=== PATIENT | female | born 1965 | race Asian ===

== ENCOUNTER 2022-08-01 15:42 | Outpatient (CLI) | payer BC | END 2022-08-01 15:43 | disposition home or self-care (01) | LOC: CSHMRI 15:42 | PROVIDERS: ATTEND Orthopaedic Surgery Hand Surgery | DX: M86.9 Osteomyelitis, unspecified (principal); R93.6 Abnormal findings on diagnostic imaging of limbs; M79.89 Other specified soft tissue disorders; L98.499 Non-pressure chronic ulcer of skin of other sites with unspecified severity ==